=== PATIENT | male | born 1950 | race Caucasian/White ===

== ENCOUNTER 2019-12-25 17:46 | Observation (INO) | payer MEDICARE, SELFPAY ==
[2019-12-25] VITALS (22 sets, daily range): BP systolic 139–238; BP diastolic 91–113; PULSE 58–74; RESP 11–31; TEMP 36.6–37.2; O2SAT 93–99; BMI 26.5
--- NOTE | 2019-12-25 17:47 | DI.CT.S_ITS ---
PROCEDURE: CT HEAD/BRAIN WO CON INDICATIONS: confusion TECHNIQUE: Noncontrast 4.5 mm thick angled axial sections acquired from the foramen magnum to the vertex, with coronal and sagittal reformats. For radiation dose reduction, the following was used: automated exposure control, adjustment of mA and/or kV according to patient size. COMPARISON: None. FINDINGS: Image quality: Excellent. CSF spaces: Basal cisterns are patent. No extra-axial fluid collections. Ventricles are normal in size and shape. Brain: No midline shift. No intracranial masses or hemorrhage. Farfan-white matter interface is normal. Skull and face: Calvarium and visualized facial bones are intact, without suspicious lesions. Benign calcification in the frontal scalp. Sinuses: Visualized sinuses and mastoids are clear. IMPRESSION: No acute intracranial abnormality. Dictated by: Luis Enrique Priest M.D. on 12/25/2019 at 17:06 Approved by: Luis Enrique Priest M.D. on 12/25/2019 at 17:08
--- NOTE | 2019-12-25 17:50 | DI.RAD.S_ITS ---
PROCEDURE: XR CHEST 1V INDICATIONS: confusion TECHNIQUE: One view of the chest was acquired. COMPARISON: None. FINDINGS: Surgical changes and devices: None. Lungs and pleura: Lungs are clear. No pleural effusions or pneumothorax. Mediastinum: Mediastinal contours appear normal. Heart size is normal. Bones and chest wall: No suspicious bony lesions. Overlying soft tissues appear unremarkable. IMPRESSION: No acute disease. Dictated by: Alberto Almeida M.D. on 12/25/2019 at 18:54 Approved by: Alberto Almeida M.D. on 12/25/2019 at 18:56
[2019-12-25 18:00] LABS: Add Manual Diff / Slide Review NO; Basophils Absolute Auto 0 /uL (0-100); Basophils Percent Auto 0.5 % (0-2); Eosinophils Absolute Auto 0 /uL (0-450); Eosinophils Percent Auto 0.1 % (2-4); Hematocrit 46.9 % (41-53); Lymphocytes Absolute Auto 1000 /uL (1100-4500); Lymphocytes Percent Auto 10.6 % (25-40); Mean Corpuscular HGB Conc 34.1 % (30-36); Mean Corpuscular Hemoglobin 32.4 PG (26-34); Monocytes Absolute Auto 500 /uL (0-900); Neutrophils Absolute Auto 8000 /uL (1500-7000); Neutrophils Percent Auto 83.8 % (50-75); Platelet Count 226 X10^3/uL (150-400); Red Blood Cell Count 4.94 X10^6/uL (4.5-5.9); Red Cell Distribution Width 12.7 % (11.6-14.8); White Blood Cell Count 9.5 X10^3/uL (4.5-11.0)
[2019-12-25 18:07] LABS: Prothrombin Time 11.2 SECONDS (10.1-12.7)
[2019-12-25 18:09] LABS: PTT Partial Thromboplastin Tim 30 SECONDS (26.4-36.2)
--- NOTE | 2019-12-25 18:09 | ED.NEUROSD ---
HPI - Neuro Symptoms/Deficit General Chief Complaint: Neuro Symptoms/Deficit Stated Complaint: Stroke Time Seen by Provider: 12/25/19 17:47 Source: patient and EMS Mode of arrival: EMS Limitations: altered mental status History of Present Illness HPI Narrative: 69M non smoker with history of genital herpes on acyclovir presents by EMS for evaluation of stroke like symptoms. He was talking on the phone with his girlfriend at about 4pm and she noted him to be confused. She called 911 to perform a well check, they activated EMS who brought the patient in as a code stroke and he was taken directly to CT. His last known normal was sometime this morning. He has repetitive questioning but denies other symptoms. He's denied any other symptoms such as blurred vision, trouble with speech or numbness, tingling or weakness of extremities. Related Data Home Medications Medication Instructions Recorded Confirmed acyclovir 400 mg PO DAILY 12/25/19 12/25/19 diphenhydramine HCl [Benadryl] 25 mg PO BEDTIME 12/25/19 12/25/19 omeprazole magnesium [Prilosec OTC] 20 mg PO DAILY 12/25/19 12/25/19 Allergies Allergy/AdvReac Type Severity Reaction Status Date / Time No Known Drug Allergies Allergy Verified 12/25/19 19:03 Review of Systems Constitutional Constitutional: Denies chills, Denies fatigue, Denies fever(s), Denies frequent falls, Denies lethargy and Denies weakness Eyes Eyes: Denies change in vision, Denies eye discharge, Denies irritation and Denies loss of vision ENT Ears, Nose, Mouth, and Throat: Denies change in voice, Denies dizziness, Denies neck pain, Denies sore throat and Denies throat swelling Cardiovascular Cardiovascular: Denies chest pain, Denies irregular heart rhythm, Denies lightheadedness, Denies palpitations, Denies dyspnea, Denies dyspnea on exertion and Denies orthopnea Respiratory Respiratory: Denies cough, Denies dyspnea, Denies dyspnea on exertion and Denies wheezing Gastrointestinal Gastrointestinal: Denies abdominal pain, Denies change in bowel habits, Denies diarrhea, Denies nausea and Denies vomiting Musculoskeletal Musculoskeletal: Denies neck pain and Denies numbness Integumentary/Breasts Skin/Breast: Denies pruritus, Denies erythema, Denies rash and Denies wounds Neurologic Neurologic: Denies behavioral changes, Reports confusion, Denies dizziness, Denies frequent falls, Denies loss of vision, Denies numbness and Denies weakness Psychiatric Psychiatric: Denies anxiety, Denies behavioral changes, Reports confusion, Denies depression, Denies homicidal ideation and Denies suicidal ideation Endocrine Endocrine: Denies fatigue, Denies flushing and Denies palpitations Hematologic/Lymphatic Hematologic/Lymphatic: Denies easy bruising Allergic/Immunologic Allergic/Immunologic: Denies urticaria, Denies throat swelling and Denies wheezing Patient History Medical History (Updated 12/26/19 @ 02:36 by HERSON Casas) Genital herpes (Chronic) Surgical History (Updated 12/26/19 @ 02:36 by HERSON Casas) No history of previous surgery (Acute) Family History (Updated 12/26/19 @ 02:37 by HERSON Casas) Father Myocardial infarction Social History household members: none Smoking Status: Never smoker alcohol intake: current Smoking Status: Never smoker alcohol intake frequency: 0-2 drinks per day Substance Use Type: does not use Exam Narrative Exam Narrative: GENERAL: [69] year old patient appears stated age. Well-nourished, well-developed patient, in mild distress. Repetitive questioning HEAD: Atraumatic. Normocephalic. EYES: Pupils equal round and reactive. Extraocular motions intact. No scleral icterus. No injection or drainage. ENT: Nose without bleeding, purulent drainage. Throat without erythema, tonsillar hypertrophy or exudate. Airway patent. NECK: Trachea midline. Non tender CARDIOVASCULAR: Regular rate and rhythm without murmurs, gallops, or rubs. RESPIRATORY: Clear to auscultation. Breath sounds equal bilaterally. No wheezes, rales, or rhonchi. GASTROINTESTINAL: Abdomen soft, non-tender, nondistended. EXTREMITIES: No edema or joint tenderness. BACK: Nontender without deformity or crepitance. No flank tenderness. NEURO: Alert. Does not know date or place. SKIN: No rash or erythema of visible areas Initial Vital Signs Initial Vital Signs: Vital Signs Temperature 97.9 F 12/25/19 17:46 Pulse Rate 72 12/25/19 17:46 Respiratory Rate 16 12/25/19 17:46 Blood Pressure 238/109 H 12/25/19 17:46 Pulse Oximetry 95 12/25/19 17:46 Scores NIH Stroke Scale Level of Conciousness: Alert, keenly responsive Ask month/age: Answers neither question correctly, aphasic, stuporous, coma Open/close eyes, close hand: Performs both tasks correctly Best gaze horizontal: Normal Visual ernst: No visual loss Facial palsy: Normal symetrical movement Left arm drift: No drift for full 10 sec Right arm drift: No drift for full 10 sec Left leg drift: No drift for full 5 sec Right leg drift: No drift for full 5 sec Limb ataxia: Absent Sensory on face/arms/legs: Normal, no sensory loss Best language: No aphasia, normal Dysarthria: Normal Extinction or inattention: No abnormality Total NIH Stroke scale score: 2 Course Orders Ordered: Acetaminophen (Tylenol) 650 mg PO Q6HR PRN PRN Reason: Fever/Mild Pain (1-3) Acyclovir (Zovirax) 400 mg PO DAILY [facility] Aspirin (Aspirin Ec) 81 mg PO DAILY [facility] Atorvastatin Calcium (Lipitor) 40 mg PO BEDTIME [facility] Clopidogrel Bisulfate (Plavix) 75 mg PO DAILY [facility] Enoxaparin Sodium (Lovenox) 40 mg SUBCUT DAILY [facility] Ibuprofen (Advil) 600 mg PO Q6HR PRN PRN Reason: Fever/Mild Pain (1-3) Melatonin (Melatonin) 6 mg PO BEDTIME [facility] Last Admin: 12/26/19 03:01 Dose: 6 mg Documented by: LAURO Ondansetron HCl (Zofran) 4 mg IV Q8HR PRN PRN Reason: Nausea And Vomiting Pantoprazole Sodium (Protonix) 20 mg PO 0700 [facility] Discontinued Medications Aspirin (Aspirin Chew) 324 mg PO NOW ONE Stop: 12/25/19 18:21 Last Admin: 12/25/19 18:24 Dose: 324 mg Documented by: SELENE Labetalol HCl (Trandate) 10 mg IV NOW ONE Stop: 12/25/19 18:18 Last Admin: 12/25/19 18:20 Dose: 10 mg Documented by: SELENE Vital Signs Vital signs: Vital Signs - 8 hr 12/25/19 17:46 12/25/19 17:54 12/25/19 18:00 Temperature 97.9 F Pulse Rate 72 72 70 Respiratory Rate 16 25 H 25 H Blood Pressure 238/109 H 238/109 H 199/113 H Pulse Oximetry 95 93 98 MDM - Neuro Symptoms/Deficit Lab Data Result diagrams: 12/25/19 17:40 12/25/19 17:40 Labs: Lab Results 12/25/19 12/25/19 12/25/19 Range/Units 17:40 17:40 17:40 WBC 9.5 (4.5-11.0) X10^3/uL RBC 4.94 (4.5-5.9) X10^6/uL Hgb 16.0 (13.5-17.5) g/dL Hct 46.9 (41-53) % MCV 95.0 (80-100) fL MCH 32.4 (26-34) PG MCHC 34.1 (30-36) % RDW 12.7 (11.6-14.8) % Plt Count 226 (150-400) X10^3/uL Neut % (Auto) 83.8 H (50-75) % Lymph % (Auto) 10.6 L (25-40) % [place] % (Auto) 5.0 (3-14) % Eos % (Auto) 0.1 L (2-4) % Baso % (Auto) 0.5 (0-2) % Neut # (Auto) 8000 H (7534-3409) /uL Lymph # (Auto) 1000 L (2048-8091) /uL [place] # (Auto) 500 (0-900) /uL Eos # (Auto) 0 (0-450) /uL Baso # (Auto) 0 (0-100) /uL PT 11.2 (10.1-12.7) SECONDS INR 1.0 (0.9-1.3) APTT 30 (26.4-36.2) SECONDS Sodium 138 (137-145) mmol/L Potassium 3.9 (3.4-5.1) mmol/L Chloride 100 (98-107) mmol/L Carbon Dioxide 28 (22-32) mmol/L BUN 21 H (9-20) mg/dL Creatinine 0.88 (0.66-1.25) mg/dL Estimated GFR > 60.0 (>60) mL/min BUN/Creatinine Ratio 23.9 H (6-22) Glucose 100 (80-110) mg/dL Lactate (0.7-2.1) mmol/L Calcium 9.4 (8.4-10.2) mg/dL Total Bilirubin 0.6 (0.2-1.3) mg/dL AST 37 (17-59) IU/L ALT 29 (<50) IU/L Alkaline Phosphatase 83 (38-126) U/L Total Creatine Kinase 173 H (55-170) U/L CK-MB (CK-2) 2.68 H (<2.37) ng/mL CK-MB (CK-2) Rel Index 1.5 (1.5-5.0) % Troponin I < 0.012 (0.01-0.034) ng/mL Total Protein 8.6 H (6.3-8.2) g/dL Albumin 5.0 (3.5-5.0) g/dL Globulin 3.6 (1.7-4.1) g/dL Albumin/Globulin Ratio 1.4 (1.0-2.8) Procalcitonin (<0.5) ng/mL Urine RBC (0-5/HPF) Urine WBC (0-5/HPF) Urine Bacteria (None) Ur Culture Indicated? U Opiates 300ng/mL cut (Negative) Ur Oxycodone Screen (Negative) Urine Methadone Screen (Negative) Ur Barbiturates Screen (Negative) U Tricyclic Antidepress (Negative) Ur Phencyclidine Scrn (Negative) Ur Amphetamines Screen (Negative) U Methamphetamines Scrn (Negative) Ur MDMA Scrn (Ecstasy) (Negative) U Benzodiazepines Scrn (Negative) Urine Cocaine Screen (Negative) U Marijuana (THC) Screen (Negative) Ethyl Alcohol < 10 ( - 10) mg/dL COVID-19 PCR (Negative) 12/25/19 12/25/19 12/25/19 Range/Units 17:40 17:40 18:30 WBC (4.5-11.0) X10^3/uL RBC (4.5-5.9) X10^6/uL Hgb (13.5-17.5) g/dL Hct (41-53) % MCV (80-100) fL MCH (26-34) PG MCHC (30-36) % RDW (11.6-14.8) % Plt Count (150-400) X10^3/uL Neut % (Auto) (50-75) % Lymph % (Auto) (25-40) % [place] % (Auto) (3-14) % Eos % (Auto) (2-4) % Baso % (Auto) (0-2) % Neut # (Auto) (7848-5128) /uL Lymph # (Auto) (6650-8596) /uL [place] # (Auto) (0-900) /uL Eos # (Auto) (0-450) /uL Baso # (Auto) (0-100) /uL PT (10.1-12.7) SECONDS INR (0.9-1.3) APTT (26.4-36.2) SECONDS Sodium (137-145) mmol/L Potassium (3.4-5.1) mmol/L Chloride (98-107) mmol/L Carbon Dioxide (22-32) mmol/L BUN (9-20) mg/dL Creatinine (0.66-1.25) mg/dL Estimated GFR (>60) mL/min BUN/Creatinine Ratio (6-22) Glucose (80-110) mg/dL Lactate 1.7 (0.7-2.1) mmol/L Calcium (8.4-10.2) mg/dL Total Bilirubin (0.2-1.3) mg/dL AST (17-59) IU/L ALT (<50) IU/L Alkaline Phosphatase (38-126) U/L Total Creatine Kinase (55-170) U/L CK-MB (CK-2) (<2.37) ng/mL CK-MB (CK-2) Rel Index (1.5-5.0) % Troponin I (0.01-0.034) ng/mL Total Protein (6.3-8.2) g/dL Albumin (3.5-5.0) g/dL Globulin (1.7-4.1) g/dL Albumin/Globulin Ratio (1.0-2.8) Procalcitonin < 0.05 (<0.5) ng/mL Urine RBC (0-5/HPF) Urine WBC (0-5/HPF) Urine Bacteria (None) Ur Culture Indicated? U Opiates 300ng/mL cut (Negative) Ur Oxycodone Screen (Negative) Urine Methadone Screen (Negative) Ur Barbiturates Screen (Negative) U Tricyclic Antidepress (Negative) Ur Phencyclidine Scrn (Negative) Ur Amphetamines Screen (Negative) U Methamphetamines Scrn (Negative) Ur MDMA Scrn (Ecstasy) (Negative) U Benzodiazepines Scrn (Negative) Urine Cocaine Screen (Negative) U Marijuana (THC) Screen (Negative) Ethyl Alcohol ( - 10) mg/dL COVID-19 PCR Negative (Negative) 12/25/19 12/25/19 Range/Units 18:42 18:42 WBC (4.5-11.0) X10^3/uL RBC (4.5-5.9) X10^6/uL Hgb (13.5-17.5) g/dL Hct (41-53) % MCV (80-100) fL MCH (26-34) PG MCHC (30-36) % RDW (11.6-14.8) % Plt Count (150-400) X10^3/uL Neut % (Auto) (50-75) % Lymph % (Auto) (25-40) % [place] % (Auto) (3-14) % Eos % (Auto) (2-4) % Baso % (Auto) (0-2) % Neut # (Auto) (0266-4984) /uL Lymph # (Auto) (2021-2386) /uL [place] # (Auto) (0-900) /uL Eos # (Auto) (0-450) /uL Baso # (Auto) (0-100) /uL PT (10.1-12.7) SECONDS INR (0.9-1.3) APTT (26.4-36.2) SECONDS Sodium (137-145) mmol/L Potassium (3.4-5.1) mmol/L Chloride (98-107) mmol/L Carbon Dioxide (22-32) mmol/L BUN (9-20) mg/dL Creatinine (0.66-1.25) mg/dL Estimated GFR (>60) mL/min BUN/Creatinine Ratio (6-22) Glucose (80-110) mg/dL Lactate (0.7-2.1) mmol/L Calcium (8.4-10.2) mg/dL Total Bilirubin (0.2-1.3) mg/dL AST (17-59) IU/L ALT (<50) IU/L Alkaline Phosphatase (38-126) U/L Total Creatine Kinase (55-170) U/L CK-MB (CK-2) (<2.37) ng/mL CK-MB (CK-2) Rel Index (1.5-5.0) % Troponin I (0.01-0.034) ng/mL Total Protein (6.3-8.2) g/dL Albumin (3.5-5.0) g/dL Globulin (1.7-4.1) g/dL Albumin/Globulin Ratio (1.0-2.8) Procalcitonin (<0.5) ng/mL Urine RBC 0-1/hpf (0-5/HPF) Urine WBC 0-1/hpf (0-5/HPF) Urine Bacteria None seen (None) Ur Culture Indicated? Cult not indicated U Opiates 300ng/mL cut Negative (Negative) Ur Oxycodone Screen Negative (Negative) Urine Methadone Screen Negative (Negative) Ur Barbiturates Screen Negative (Negative) U Tricyclic Antidepress Negative (Negative) Ur Phencyclidine Scrn Negative (Negative) Ur Amphetamines Screen Negative (Negative) U Methamphetamines Scrn Negative (Negative) Ur MDMA Scrn (Ecstasy) Negative (Negative) U Benzodiazepines Scrn Negative (Negative) Urine Cocaine Screen Negative (Negative) U Marijuana (THC) Screen Negative (Negative) Ethyl Alcohol ( - 10) mg/dL COVID-19 PCR (Negative) Urine Dip Bedside Urine Glucose Negative Bedside Urine Bilirubin - Negative Bedside Urine Ketone + 15 Urine Specific [place] 1.030 Bedside Urine Occult Blood - Negative Bedside Urine pH 6.0 Bedside Urine Protein - Negative Bedside Urine Urobilinogen - Negative Bedside Urine Nitrite - Negative Bedside Urine Leukocytes - Negative Esterase Imaging Data CT scan - head: Radiologist's Impression: Chart Viewer Diagnostics DATE TYPE STATUS REF RANGE/AUTHOR Hx 12/25/19 17:47 Luis Enrique Priest Michael 69, M0 1950 [facility], [facility] ED R01 83.8kg Neuro Symptoms/Deficit Search Chart No Data to Display No Data to Display No Data to Display No Data to Display Today 17:46 Claude Evans M 1950 [address] [address] [address] Scan Report Signed Patient: Claude EvansMR#: [id number] : 1Acct:[id number] Age/Sex: 69 / MDate of Service: 12/25/19 Loc: ED Accession Number: [id number] Procedure: CT head/brain wo con Ordering Provider: Cheryl Stanley D.O. PROCEDURE: CT HEAD/BRAIN WO CON INDICATIONS: confusion TECHNIQUE: Noncontrast 4.5 mm thick angled axial sections acquired from the foramen magnum to the vertex, with coronal and sagittal reformats. For radiation dose reduction, the following was used: automated exposure control, adjustment of mA and/or kV according to patient size. COMPARISON: None. FINDINGS: Image quality: Excellent. CSF spaces: Basal cisterns are patent. No extra-axial fluid collections. Ventricles are normal in size and shape. Brain: No midline shift. No intracranial masses or hemorrhage. Farfan-white matter interface is normal. Skull and face: Calvarium and visualized facial bones are intact, without suspicious lesions. Benign calcification in the frontal scalp. Sinuses: Visualized sinuses and mastoids are clear. IMPRESSION: No acute intracranial abnormality. Dictated by: Luis Enrique Priest M.D. on 12/25/2019 at 17:06 Approved by: Luis Enrique Priest M.D. on 12/25/2019 at 17:08 Discharge Plan Departure Patient Disposition: Admitted as Observation Clinical Impression: TGA (transient global amnesia) Discharge Date/Time: 12/25/19 20:00 Admit Date/Time: 12/25/19 19:59 Admit Provider: Kalie Almeida
[2019-12-25 18:12] LABS: Alanine Aminotransferase 29 IU/L (<50); Albumin Globulin Ratio 1.4 (1.0-2.8); Alkaline Phosphatase 83 U/L (38-126); Aspartate Aminotransferase 37 IU/L (17-59); BUN Creatinine Ratio 23.9 (6-22); Bilirubin Total 0.6 mg/dL (0.2-1.3); Blood Urea Nitrogen 21 mg/dL (9-20); Calcium 9.4 mg/dL (8.4-10.2); Carbon Dioxide 28 mmol/L (22-32); Chloride 100 mmol/L (98-107); Creatine Kinase 173 U/L (55-170); Estimated Glomerular Filt Rate > 60.0 mL/min (>60); Ethanol (ETOH) < 10 mg/dL; Globulin 3.6 g/dL (1.7-4.1); Glucose 100 mg/dL (80-110); Lactate (Lactic Acid) 1.7 mmol/L (0.7-2.1); Potassium 3.9 mmol/L (3.4-5.1); Sodium 138 mmol/L (137-145); Total Protein 8.6 g/dL (6.3-8.2)
[2019-12-25] MEDS: LABETALOL 20 MG/4 ML SYRINGE 10 MG IV (18:20)
[2019-12-25 18:23] LABS: Troponin I < 0.012 ng/mL (0.01-0.034)
[2019-12-25] MEDS: ASPIRIN 81 MG CHEW TAB 324 MG PO (18:24)
[2019-12-25 18:26] LABS: CKMB % Relative Index 1.5 % (1.5-5.0); Creatine Kinase MB 2.68 ng/mL (<2.37); HEMOLYSIS 43 (0-50)
[2019-12-25 18:36] LABS: Procalcitonin < 0.05 ng/mL (<0.5)
[2019-12-25 18:50] LABS: COVID19 -Nasal RAPID Negative (Negative)
[2019-12-25 19:00] LABS: Bacteria Urine None Seen
[2019-12-25 19:03] LABS: UR Morphine/Opiate cutoff 300 Negative (Negative); Ur Creatinine Normal (Normal); Ur Specific Gravity Normal (Normal); Urine Amphetamines Negative (Negative); Urine Barbiturates Negative (Negative); Urine Benzodiazepines Negative (Negative); Urine Cocaine Negative (Negative); Urine MDMA Negative (Negative); Urine Methadone Negative (Negative); Urine Methamphetamines Negative (Negative); Urine Oxycodone Negative (Negative); Urine Phencyclidine Negative (Negative); Urine Tetrahydrocannabinol Negative (Negative); Urine Tricyclic Antidepressant Negative (Negative); Urine pH Normal (Normal)
[2019-12-25 19:19] LABS: Culture Indicated Urine Cult Not Indicated; RBC Urine 0-1/HPF (0-5/HPF); WBC Urine 0-1/HPF (0-5/HPF)
--- NOTE | 2019-12-25 21:21 | PC.ADMIT ---
Admission Note: The patient,Claude Evans,69 y/o, was given written information regarding hospital policies, unit procedures and contact persons. Patient's smoking status: Never smoker. Pt arrived via stretcher. Ambulated to bed. Steady on feet. Alert and conversing. Forgetful, repeats questions and comments. Oriented room and call system. Bed alarm on. door open for close monitoring. Vital Signs - 8 hr 12/25/19 17:46 12/25/19 17:54 12/25/19 18:00 Temperature 97.9 F Pulse Rate 72 72 70 Respiratory Rate 16 25 H 25 H Blood Pressure 238/109 H 238/109 H 199/113 H Pulse Oximetry 95 93 98 12/25/19 18:15 12/25/19 18:20 12/25/19 18:25 Temperature Pulse Rate 71 74 62 Respiratory Rate 22 24 20 Blood Pressure 218/107 H 209/100 H 185/98 H Pulse Oximetry 98 98 98 12/25/19 18:30 12/25/19 18:31 12/25/19 18:40 Temperature Pulse Rate 63 60 64 Respiratory Rate 31 H 21 21 Blood Pressure 183/98 H 199/102 H Pulse Oximetry 98 98 96 12/25/19 18:45 12/25/19 18:50 12/25/19 18:53 Temperature Pulse Rate 60 58 L 58 L Respiratory Rate 25 H 21 Blood Pressure 179/95 H 171/98 H 171/98 H Pulse Oximetry 98 98 12/25/19 18:55 12/25/19 19:00 12/25/19 19:05 Temperature Pulse Rate 59 L 58 L 59 L Respiratory Rate 23 17 19 Blood Pressure 153/97 H 172/96 H 160/102 H Pulse Oximetry 98 99 98 12/25/19 19:10 12/25/19 19:15 12/25/19 19:20 Temperature Pulse Rate 59 L 58 L 58 L Respiratory Rate 16 15 11 L Blood Pressure 164/96 H 155/93 H 156/94 H Pulse Oximetry 97 98 98 12/25/19 19:25 12/25/19 19:30 12/25/19 20:00 Temperature 98.9 F Pulse Rate 59 L 61 60 Respiratory Rate 11 L 22 17 Blood Pressure 140/91 H 183/101 H 152/107 H Pulse Oximetry 97 97 99
[2019-12-26] VITALS (8 sets, daily range): BP systolic 127–163; BP diastolic 80–91; PULSE 50–58; RESP 16–19; TEMP 36.4–37; O2SAT 94–99
--- NOTE | 2019-12-26 02:29 | PM.HP.1 ---
History of Present Illness History of Present Illness Date Patient Seen: 12/26/19 Time Patient Seen: 00:01 Chief complaint: Stroke Narrative: Claude Evans is a very pleasant 69-year-old male who was apparently speaking to his girlfriend in [place] on the phone when after they completed their talk she called 911 because he kept asking her the same questions over and over again. He lives on or [facility] but was on his boat and when EMS came over to do a welfare check they decided to bring him into the emergency department due to his being confused. Was unable to tell them the day of the week, where he was or his age. When he got to the emergency room he continued to repeat the same questions over and over again. He has essentially no medical history only takes acyclovir on a regular basis. He also denies a surgical history. He apparently has a home on [facility], maintains a boat over here on [address], and spends the rest of the year in [facility]. He states that he had some sort of ?fibrillation and pointed to the left side of his neck approximately 20 years ago and states that at that time. He eventually regained his memory. He does not recall if he was diagnosed with anything. He denies headaches, visual changes, hallucinations, difficulty swallowing, chest pain, shortness of breath, dysuria, diarrhea, constipation, numbing and tingling of his upper and lower extremities. Emergency department they did a CT of his head which was negative for acute stroke. His presenting blood pressure was 238/109 and he was given 1 dose of IV labetalol. His current vitals are a temperature of 98.6?, blood pressure 139/95, heart rate 64, respiratory rate of 16, oxygen saturation 99% on room air, he weighs 83.8 kg with a BMI of 26.5. Patient History Medical History (Updated 12/26/19 @ 02:36 by HERSON Casas) Genital herpes (Chronic) Surgical History (Updated 12/26/19 @ 02:36 by HERSON Casas) No history of previous surgery (Acute) Family & Social History Family History (Updated 12/26/19 @ 02:37 by HERSON Cassa) Father Myocardial infarction Social History: household members none Prior Living Arrangements House Safety & Behavioral: Feels Safe in Current Yes Environment Been Physically Hurt or No Threatened By a Person Suicidal Ideation Description None Suicide Plan Description No Plan Tobacco & Substance use: Smoking Status Never smoker alcohol intake current alcohol intake frequency 0-2 drinks per day Substance Use Type does not use Meds Home Medications and Allergies Home Medications Medication Instructions Recorded Confirmed Type acyclovir 400 mg PO DAILY 12/25/19 12/25/19 History diphenhydramine HCl [Benadryl] 25 mg PO BEDTIME 12/25/19 12/25/19 History omeprazole magnesium [Prilosec OTC] 20 mg PO DAILY 12/25/19 12/25/19 History Allergies Allergy/AdvReac Type Severity Reaction Status Date / Time No Known Drug Allergies Allergy Verified 12/25/19 19:03 Review of Systems Review of Systems ROS: Yes All systems reviewed with the patient and are negative except as otherwise documented Exam Vital Signs (past 8 hours): - 12/25/19 18:30 12/25/19 18:31 12/25/19 18:40 Temperature Pulse Rate 63 60 64 Respiratory Rate 31 H 21 21 Blood Pressure 183/98 H 199/102 H Pulse Oximetry 98 98 96 12/25/19 18:45 12/25/19 18:50 12/25/19 18:53 Temperature Pulse Rate 60 58 L 58 L Respiratory Rate 25 H 21 Blood Pressure 179/95 H 171/98 H 171/98 H Pulse Oximetry 98 98 12/25/19 18:55 12/25/19 19:00 12/25/19 19:05 Temperature Pulse Rate 59 L 58 L 59 L Respiratory Rate 23 17 19 Blood Pressure 153/97 H 172/96 H 160/102 H Pulse Oximetry 98 99 98 12/25/19 19:10 12/25/19 19:15 12/25/19 19:20 Temperature Pulse Rate 59 L 58 L 58 L Respiratory Rate 16 15 11 L Blood Pressure 164/96 H 155/93 H 156/94 H Pulse Oximetry 97 98 98 12/25/19 19:25 12/25/19 19:30 12/25/19 20:00 Temperature 98.9 F Pulse Rate 59 L 61 60 Respiratory Rate 11 L 22 17 Blood Pressure 140/91 H 183/101 H 152/107 H Pulse Oximetry 97 97 99 12/25/19 23:47 12/26/19 00:45 Temperature 98.6 F Pulse Rate 64 Respiratory Rate 16 Blood Pressure 139/95 H Pulse Oximetry 99 99 Oxygen Delivery Method Room Air Oxygen Flow Rate 0 Narrative Exam Narrative: Gen: Alert, oriented, well-developed 69 y.o. male, NAD HEENT: normocephalic, atraumatic, conjunctiva clear, sclera non-icteric, oral mucosa pink and moist Neck: supple, full ROM, no JVD, trachea is midline Resp: Lungs CTA, non-labored breathing CV: RRR, no murmur or rubs Abd: soft, non-tender, normoactive BTs Skin: no lesions or rashes, dry and intact Neuro: Alert and oriented X 2 w/no focal deficits. Speech is tangential, repetative and clear without slurring. Extremities: moves all 4 extremities, is ambulatory, negative Joycelyn?s sign Psyche: very pleasant, laughs at his inability to remember things Objective Labs Result Diagrams: 12/25/19 17:40 12/25/19 17:40 Labs: Laboratory Results - last 24 hr 12/25/19 12/25/19 12/25/19 17:40 17:40 17:40 WBC 9.5 RBC 4.94 Hgb 16.0 Hct 46.9 MCV 95.0 MCH 32.4 MCHC 34.1 RDW 12.7 Plt Count 226 Neut % (Auto) 83.8 H Lymph % (Auto) 10.6 L Griggs % (Auto) 5.0 Eos % (Auto) 0.1 L Baso % (Auto) 0.5 Neut # (Auto) 8000 H Lymph # (Auto) 1000 L Griggs # (Auto) 500 Eos # (Auto) 0 Baso # (Auto) 0 PT 11.2 INR 1.0 APTT 30 Sodium 138 Potassium 3.9 Chloride 100 Carbon Dioxide 28 BUN 21 H Creatinine 0.88 Estimated GFR > 60.0 BUN/Creatinine Ratio 23.9 H Glucose 100 Lactate Calcium 9.4 Total Bilirubin 0.6 AST 37 ALT 29 Alkaline Phosphatase 83 Total Creatine Kinase 173 H CK-MB (CK-2) 2.68 H CK-MB (CK-2) Rel Index 1.5 Troponin I < 0.012 Total Protein 8.6 H Albumin 5.0 Globulin 3.6 Albumin/Globulin Ratio 1.4 Procalcitonin Urine RBC Urine WBC Urine Bacteria Ur Culture Indicated? U Opiates 300ng/mL cut Ur Oxycodone Screen Urine Methadone Screen Ur Barbiturates Screen U Tricyclic Antidepress Ur Phencyclidine Scrn Ur Amphetamines Screen U Methamphetamines Scrn Ur MDMA Scrn (Ecstasy) U Benzodiazepines Scrn Urine Cocaine Screen U Marijuana (THC) Screen Ethyl Alcohol < 10 COVID-19 PCR 12/25/19 12/25/19 12/25/19 17:40 17:40 18:30 WBC RBC Hgb Hct MCV MCH MCHC RDW Plt Count Neut % (Auto) Lymph % (Auto) Griggs % (Auto) Eos % (Auto) Baso % (Auto) Neut # (Auto) Lymph # (Auto) Griggs # (Auto) Eos # (Auto) Baso # (Auto) PT INR APTT Sodium Potassium Chloride Carbon Dioxide BUN Creatinine Estimated GFR BUN/Creatinine Ratio Glucose Lactate 1.7 Calcium Total Bilirubin AST ALT Alkaline Phosphatase Total Creatine Kinase CK-MB (CK-2) CK-MB (CK-2) Rel Index Troponin I Total Protein Albumin Globulin Albumin/Globulin Ratio Procalcitonin < 0.05 Urine RBC Urine WBC Urine Bacteria Ur Culture Indicated? U Opiates 300ng/mL cut Ur Oxycodone Screen Urine Methadone Screen Ur Barbiturates Screen U Tricyclic Antidepress Ur Phencyclidine Scrn Ur Amphetamines Screen U Methamphetamines Scrn Ur MDMA Scrn (Ecstasy) U Benzodiazepines Scrn Urine Cocaine Screen U Marijuana (THC) Screen Ethyl Alcohol COVID-19 PCR Negative 12/25/19 12/25/19 18:42 18:42 WBC RBC Hgb Hct MCV MCH MCHC RDW Plt Count Neut % (Auto) Lymph % (Auto) Griggs % (Auto) Eos % (Auto) Baso % (Auto) Neut # (Auto) Lymph # (Auto) Griggs # (Auto) Eos # (Auto) Baso # (Auto) PT INR APTT Sodium Potassium Chloride Carbon Dioxide BUN Creatinine Estimated GFR BUN/Creatinine Ratio Glucose Lactate Calcium Total Bilirubin AST ALT Alkaline Phosphatase Total Creatine Kinase CK-MB (CK-2) CK-MB (CK-2) Rel Index Troponin I Total Protein Albumin Globulin Albumin/Globulin Ratio Procalcitonin Urine RBC 0-1/hpf Urine WBC 0-1/hpf Urine Bacteria None seen Ur Culture Indicated? Cult not indicated U Opiates 300ng/mL cut Negative Ur Oxycodone Screen Negative Urine Methadone Screen Negative Ur Barbiturates Screen Negative U Tricyclic Antidepress Negative Ur Phencyclidine Scrn Negative Ur Amphetamines Screen Negative U Methamphetamines Scrn Negative Ur MDMA Scrn (Ecstasy) Negative U Benzodiazepines Scrn Negative Urine Cocaine Screen Negative U Marijuana (THC) Screen Negative Ethyl Alcohol COVID-19 PCR Assessment & Plan Assessment & Plan narrative: Claude Evans will be admitted inpatient status for further evaluation of transient global amnesia versus CVA. Suspected TIA versus stroke presenting as global transient amnesia, acute, present on admission -Telemetry -NIH scoring and neuro checks q 4 hours -initiate clopidogrel 75 mg p.o. daily and aspirin 81 mg p.o. daily -MR stroke scheduled for 12/25 -Complete Echo for 12/25 -PT/OT/ST evaluation -Of stroke evaluation is negative, would recommend outpatient follow-up with neurology and to have an EEG to assess for seizure activity. Accelerated hypertension, acute with an admission bp of 238/109, present on admission -Allow for permissive hypertension of 220/110 HR 60 to allow for brain perfusion Risk stratification -Lipid panel, pending -Atorvastatin 40 mg po at bedtime VTE prophylaxis: Wells risk score: 0 Enoxaparin 40 mg subQ daily Consults: none Patient is admitted under inpatient status with expected length of stay greater than 2 midnights due to severity of presenting symptoms, risk of adverse event, and complexity of treatment plan. FEN: saline lock, heart healthy diet, BMP and magnesium in the am. Dispo: Presumed eventual discharge to home. Code Status: Full code as discussed with patient
[2019-12-26] MEDS: MELATONIN 3 MG TABLET 6 MG PO ×2 (03:01→21:07)
[2019-12-26 06:26] LABS: BUN Creatinine Ratio 16.5 (6-22); Blood Urea Nitrogen 14 mg/dL (9-20); Calcium 8.8 mg/dL (8.4-10.2); Carbon Dioxide 29 mmol/L (22-32); Chloride 102 mmol/L (98-107); Cholesterol 181 mg/dL (140-199); Estimated Glomerular Filt Rate > 60.0 mL/min (>60); Glucose 112 mg/dL (80-110); HDL Cholesterol 36 mg/dL (40-60); HEMOLYSIS < 15 (0-50); LDL Cholesterol Calculated 126 mg/dL (<100); Magnesium 2.2 mg/dL (1.6-2.3); Potassium 4.1 mmol/L (3.4-5.1); Sodium 137 mmol/L (137-145); Triglycerides 93 mg/dL (35-150)
[2019-12-26 06:27] LABS: Add Manual Diff / Slide Review NO; Basophils Absolute Auto 100 /uL (0-100); Basophils Percent Auto 0.9 % (0-2); Eosinophils Absolute Auto 100 /uL (0-450); Eosinophils Percent Auto 0.8 % (2-4); Hematocrit 43.6 % (41-53); Hemoglobin 14.7 g/dL (13.5-17.5); Lymphocytes Absolute Auto 1700 /uL (1100-4500); Mean Corpuscular HGB Conc 33.8 % (30-36); Mean Corpuscular Hemoglobin 32.1 PG (26-34); Mean Corpuscular Volume 94.9 fL (80-100); Monocytes Absolute Auto 800 /uL (0-900); Monocytes Percent Auto 12.3 % (3-14); Neutrophils Absolute Auto 3600 /uL (1500-7000); Platelet Count 212 X10^3/uL (150-400); Red Blood Cell Count 4.59 X10^6/uL (4.5-5.9); Red Cell Distribution Width 12.5 % (11.6-14.8); White Blood Cell Count 6.1 X10^3/uL (4.5-11.0)
--- NOTE | 2019-12-26 08:00 | DI.MRI.S_ITS ---
PROCEDURE: MR STROKE Pre- and post-contrast brain MRI, non-contrast brain MR angiogram, pre- and postcontrast neck MR angiogram INDICATIONS: Transient global amnesia TECHNIQUE: Brain: Noncontrast axial T1 spin echo, axial T2 fast spin echo, sagittal and axial FLAIR, coronal T2 fast spin echo, axial gradient echo, axial diffusion and ADC through the brain. After the administration of contrast, axial 3D VIBE of the cranial vasculature and brain. Brain MRA: Non-contrast 3-D time of flight MR angiogram, with multiple lhablfm-dnvatqajz-chpxqmxprp (MIP) reformats performed. Neck MRA: Axial and sagittal TruFISP through the neck. Coronal dynamic MR angiogram during administration of contrast in the arterial and venous phases, with 3-dimenstional hthyofu-glomvtzxi-hiyhehruyi (MIP) reformats constructed from subtraction images. COMPARISON: [facility], CT, CT HEAD/BRAIN WO CON, 12/25/2019, 17:48. FINDINGS: Image quality: Diagnostic, with note made of motion artifact. BRAIN: CSF spaces: Ventricles are normal in size and shape. Basal cisterns are patent. No extra-axial fluid collections. Brain: No intracranial bleeds or mass effects. Farfan-white matter interface is normal. Diffusion weighted images show no acute ischemic insults. Brainstem appears normal. Normal intravascular flow voids are present. No abnormal intracranial enhancement. Brain parenchymal volume loss is seen. Chronic small vessel ischemic changes are seen. Skull and face: Calvarial marrow signal is normal. Orbits appear normal. Sinuses: Sinuses and mastoids are clear. BRAIN MR ANGIOGRAM: Anterior circulation: Intracranial internal carotid arteries are normal in size and enhancement. The flow within the paired anterior cerebral arteries is normal and symmetric. The flow within the middle cerebral arteries is normal and symmetric. The anterior communicating artery is seen. No stenoses, occlusions, or aneurysms. Posterior circulation: The visualized portions of the vertebral arteries demonstrate normal caliber, and join to form a normal appearing basilar artery. The right vertebral artery is dominant to the left. The right vertebral artery is dominant to the left. The left vertebral artery largely terminates in the left posterior inferior cerebral artery. The flow within the posterior cerebral arteries is normal and symmetric. No stenoses, occlusions, or aneurysms. NECK MR ANGIOGRAM: Carotids: Great vessels demonstrate a conventional anatomy as they arise from the aortic arch. The origins of the common carotid arteries appear patent. The calibers and courses of both common carotid arteries are normal. The bifurcation regions demonstrate atherosclerotic irregularity. There is potential ulceration seen involving the left carotid bulb, as on series 32 images 42 through 46. Tortuosity is seen involving the more distal internal carotid arteries, right worse than left. Posterior circulation: The origins of the vertebral arteries appear patent. More superior portions of both vertebral arteries demonstrate normal course and caliber, and join to form a normal appearing basilar artery. Miscellaneous: Subclavian arteries appear patent. Pre-contrast images through the neck show no soft tissue abnormalities. IMPRESSION: BRAIN MRI: No findings of acute or subacute infarction can be seen. No masses or abnormal enhancement can be seen. Note is made of age-appropriate brain parenchymal volume loss and chronic small vessel ischemic changes. BRAIN MR ANGIOGRAM: No significant intracranial arterial abnormality is seen. NECK MR ANGIOGRAM: No hemodynamically significant stenosis can be seen involving the arteries of the neck. There is a potential ulceration seen involving the left carotid bulb. Please consider CT angiogram versus carotid ultrasound for further evaluation. Dictated by: Mike Guzman M.D. on 12/26/2019 at 15:03 Approved by: Mike Guzman M.D. on 12/26/2019 at 15:08
[2019-12-26] MEDS: CLOPIDOGREL 75 MG TABLET PO (09:20)
[2019-12-26] MEDS: ASPIRIN EC 81 MG TABLET PO (09:20)
[2019-12-26] MEDS: ACYCLOVIR 400 MG TABLET PO (09:20)
[2019-12-26] MEDS: ENOXAPARIN 40 MG/0.4 ML SYRINGE SUBCUT (09:20)
[2019-12-26] MEDS: PANTOPRAZOLE 20 MG TABLET PO (09:21)
--- NOTE | 2019-12-26 10:00 | DI.ECHO.S_ITS ---
[facility] +---------+ : : [address] [place] : : : : [id number] : : : : Phone: [phone] Echocardiogram Report + + :Name: ABRIL PATEL Study Date: 12/26/2019 Height: 70 in : :[facility] Weight: 184 lb : : Gender: Male BSA: 2.0 m2 : :: 1950 Age: 69 yrs BP: 163/91 mmHg: :Reason For Study: TIA : :Ordering Physician: JUDI GALLARDO : :MONITORING MANAGER Performed By: Terese Woodward : :Referring: JUDI GALLARDO : + + Interpretation Summary Normal left ventricle size with ejection fraction 60-65%. Mild mitral regurgitation. The aortic valve is mildly calcified. The ascending aorta is mildly enlarged. Procedure: A two-dimensional transthoracic echocardiogram with color flow and Doppler was performed. The study quality was technically adequate. There is no prior echocardiogram noted for this patient. The patient was in sinus bradycardia with heart rates between 50-55 bpm during the exam. Left Ventricle: The left ventricle is normal in size and wall thickness. The ejection fraction is estimated to be 60-65%. There are no focal wall motion abnormalities. Diastolic parameters suggest probable normal left ventricular diastolic function and normal filling pressures. Right Ventricle: The right ventricle is at the upper limits of normal in size. The right ventricular systolic function is normal. Atria: The left atrial size is normal. Right atrial size is normal. There is no Doppler evidence for an interatrial shunt. Mitral Valve: The mitral valve is normal in structure and function. There is mild mitral regurgitation. Aortic Valve: The aortic valve is mildly calcified. The aortic valve is trileaflet. The aortic valve opens well. There is no aortic valve stenosis. No aortic regurgitation is present. Tricuspid Valve: The tricuspid valve is normal in structure and function. There is trace tricuspid regurgitation. Pulmonary artery pressures cannot be estimated because of the lack of a measurable TR jet velocity but the IVC suggests a CVP of around 3 mmHg. Pulmonic Valve: The pulmonic valve is not well seen, but is grossly normal. There is no pulmonic valvular regurgitation. Great Vessels: The aortic root is borderline dilated. The ascending aorta is mildly enlarged. The IVC is of normal diameter and collapses greater than 50% with a sniff. This suggests a low right atrial pressure of 3 mm Hg. Pericardium/ Pleura There is no pericardial effusion. There is no pleural effusion. MMode/2D Measurements & Calculations LVIDd: 5.0 cm LVOT diam: 2.1 cm LVIDs: 3.4 cm Ao root diam: 3.5 cm FS: 33.0 % asc Aorta Diam: 3.8 cm EPSS: 0.92 cm Ao Arch Diam (Prox Trans): 2.9 cm IVSd: 1.1 cm LVPWd: 0.87 cm LV ortiz. diameter/BSA (cm/m^2): 2.5 LV sys. diameter/BSA (cm/m^2): 1.7 LA A2 area: 19.4 cm2 RA long axis: 5.8 cm LA A4 area: 18.1 cm2 RA area: 16.3 cm2 LA length (vol): 5.2 cm RA vol: 38.8 ml LA vol: 57.9 ml RA : 19.3 ml/m2 LA vol index: 28.7 ml/m2 IVC diam: 1.8 cm RVD1 (basal): 4.0 cm TAPSE: 2.0 cm Doppler Measurements & Calculations Ao V2 max: 154.5 cm/sec LVOT Max Tirso: 109.2 cm/sec Ao V2 mean: 113.0 cm/sec LV V1 max P.8 mmHg Ao max P.5 mmHg LV V1 VTI: 22.7 cm Ao mean P.5 mmHg PARAG(I,D): 2.3 cm2 Ao V2 VTI: 33.1 cm PARAG(V,D): 2.4 cm2 sev ratio: 0.69 PARAG indexed to BSA (cm^2/m^2): 1.1 MV E max tirso: 52.8 cm/sec TR max tirso: 214.2 cm/sec MV A max tirso: 50.5 cm/sec TR max P.3 mmHg MV E/A: 1.0 PA V2 max: 66.3 cm/sec Med Peak E' Tirso: 6.0 cm/sec PA V2 mean: 45.9 cm/sec E/E' med: 8.8 PA mean P.95 mmHg Lat Peak E' Tirso: 10.5 cm/sec PA pr(Accel): 8.8 mmHg E/E' lat: 5.0 E/e' average: 6.9 MV dec time: 0.35 sec SV(LVOT): 76.3 ml Electronically signed by: Anaid Brown on Reading Physician:12/26/2019 12:54 PM
--- NOTE | 2019-12-26 10:49 | OT.IP.EVAL ---
Past Medical History (Last Updated 12/26/19 @ 02:36 by HERSON Casas) Genital herpes (Chronic) Surgical History (Last Updated 12/26/19 @ 02:36 by HERSON Casas) No history of previous surgery (Acute) Occupational Therapy Inpatient Evaluation/Re-Eval M1 PT/OT-IP Prior Functional Status Start: 12/26/19 16:14 Freq: NEEDED Status: Active Protocol: Document 12/26/19 16:30 [facility] (Rec: 12/26/19 17:04 [facility] Medical Review Prior Functional Status Medical History Reviewed Yes Communication Independent. Mobility and Gait Independent with no devices. Activities of Daily Living and IADL's Completely independent with ADL's, IADl's, drives his truck, and maintains his boat. 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 Social History Household Members none Living Arrangements House M2 OT-IP Current Condition Start: 12/26/19 16:14 Freq: Status: Active Protocol: Document 12/26/19 16:30 [facility] (Rec: 12/26/19 17:04 [facility] Occupational Therapy Current Condition Current Condition Evaluation Date 12/26/19 Treatment Diagnosis Altered mental status,suspected TIA decreased short term memory Diagnosis Onset Date 12/25/19 M3 OT- IP Subjective and Pain Start: 12/26/19 16:14 Freq: Status: Active Protocol: Document 12/26/19 16:30 [facility] (Rec: 12/26/19 17:04 [facility] OT- Subjective Occupational Therapy Visit Type Type Initial Evaluation Visit Start Time 09:10 Visit Stop Time 10:49 Total Visit Minutes 109 Notes Pt also seen in the afternoon for 10 minutes. Occupational Therapy Visit Comments Patient Comments Pt agreed to do OT eval. Patient/Caregiver Goals To go home. OT Pain Assessment Pain When Pain Assessed At Rest Pain Present Pain Present Denied Pain M4 OT- IP ADL's Start: 12/26/19 16:14 Freq: Status: Active Protocol: Document 12/26/19 16:30 [facility] (Rec: 12/26/19 17:04 [facility] [id number]) OT [id number] Comments OT Self-Feeding Comments Not at meal time. OT ADL-Grooming General Evaluation Grooming Ability Independent OT ADL-Oral Care General Eval Oral Care Ability Independent OT ADL-Dressing General Eval Upper Body Dressing Ability Independent Lower Body Dressing Ability Independent OT ADL-Toileting General Evaluation Toileting Ability Independent Comments OT Toileting Comments Pt able to urinate on the toilet independently on his own. OT ADL-Bathing Comments OT Bathing Comments Pt not wanting to shower at this time. M5 OT- IP IADL's Start: 12/26/19 16:14 Freq: Status: Active Protocol: Document 12/26/19 16:30 [facility] (Rec: 12/26/19 17:04 [id number]) OT-Instrumental Activities of Daily Living Home Safety Awareness Ability to Problem Solve Emergency Able to Problem Solve Situations Medication Management Medication Management Comments Pt states does his own medications. Due to intermittent short term memory issues would benefit for pt to use pill organizer . Money Management Money Management Comments Pt states does his own. but with his intermittent short term memory issues may be best to have someone supervision initially. Driving Driving Concerns Identified Regarding Safety M6 OT- IP Functional Cognition Start: 12/26/19 16:14 Freq: Status: Active Protocol: Document 12/26/19 16:30 [facility] (Rec: 12/26/19 17:04 [id number]) Cognitive Factors Limiting Selfcare Function Cognitive Ability Level of Alertness Alert Patient Orientation Name,Age,Birthday,Month,Date, Year,Day of Week,Place, Situation Attention Span Ability Capable of Focused Attention, Capable of Sustained Attention Ability to Follow Commands Able to Follow Multi-Step Commands Memory Description Short Term Impaired Safety Awareness No Deficits Noted Problem Solving Ability Needs Assist to Identify Solutions Executive Function Ability Unable to Remember Details Cognitive Tests SLUMS Pt scored 22/30 , normal score for pt's level of education is 27/30. The score of 22 implies mild neurocognitive impairments. Pt able to recall only 1/5 words after time passed, and when able to tell pt the other words did not remember even hearing two of the words. Pt only able to recall 2/4 questions after paragraph read. ACL Pt scored 5.8/6.0 which implies pt may benefit from planning for the future. Cognitive Comments Cognitive Assessment Comments Pt scored 170 seconds on [place] making Part b however pt states his score may be affected by his vision as he states has macular degeneration with blind spots. A score of 170 seconds indicate severe impairments for visual attention, task switching, mental flexibility, speed of processing, and executive function. Base on this score, suggese pt not drive especially as pt having difficulty with his short term memory at this time. Pt not able to recall what the doctor told his right after speaking to him. Pt not able to recall that what his daughter told him over the phone. Pt mainly seems to have issues with his short term memory , which may decrease his safety for needs. Had pt do 9 Hole peg test and had him look up his percentile for each hand performed. Pt having trouble seeing and looking up initially where to look on the chart as initially looking under the female chart. Pt also needing use of a folded sheet of paper to help read across the find the correct number values. Once again his vision issues may affect his performance of reading the chart. OT- Vision and Hearing OT- Hearing Assessment OT- Hearing Assessment WFL OT- Vision Assessment Visual Acuity Glasses For Reading Visual Attentiveness WFL Occular Pursuits WFL Visual Convergence WFL Vision Assessment Comments Pt has difficulty for lower right quadrant for peripheral vision. M7 OT- IP Mobility and Balance Start: 12/26/19 16:14 Freq: Status: Active Protocol: Document 12/26/19 16:30 [facility] (Rec: 12/26/19 17:04 [facility] [id number]) OT- Bed Mobility Assessment Supine to Sit Supine to Sit Assist Independent Sit to Supine Sit to Supine Assist Independent Scooting Scooting to Edge of Bed Independent Scooting Up and Down in Bed Independent OT-Transfer Assessment Sit to and From Stand Sit to and from Stand Independent Transfers Transfer Ability Independent Technique Transfer Destination Bed,Chair,Toilet Comments Mobility Comments Pt able to independently step onto the bench seating and sit on the window still. Pt able to independently get up and down from the floor without assist. OT- Gait Assessment Gait Gait Assistance Required: Independent Comments Gait Ability Comments Pt is independent in the room. OT- Balance Assessment Sitting Balance and Reactions Static Sitting Balance Ability Normal Dynamic Sitting Balance Ability Normal Standing Balance and Reactions Static Standing Balance Ability Normal Dynamic Standing Balance Ability Normal M8 OT- IP Objective Assessments Start: 12/26/19 16:14 Freq: Status: Active Protocol: Document 12/26/19 16:30 [facility] (Rec: 12/26/19 17:04 [id number]) OT Gross Range of Motion Upper Extremity Range of Motion Assessment Within Functional Limits OT Strength Upper Extremity Strength Assessment Within Functional Limits OT- Coordination Assessment Upper Extremity Finger to Nose Test Within Functional Limits Comments Coordination Comments WFL for all coordination needs . OT-Muscle Tone Assessment Muscle Tone WNL Yes M9 OT- IP Assessment and Plan Start: 12/26/19 16:14 Freq: Status: Active Protocol: Document 12/26/19 16:30 [facility] (Rec: 12/26/19 17:04 [id number]) OT Summary Assessment and Plan Potential Rehabilitation Potential Excellent Analytic Complexity at Evaluation Low Summary OT Impairments Functional Cognition Progress Towards Goals Progressing Toward Goals Assessment Summary Pt low complexity and with main barrier of decreased short term memory , which is intermittent at times. Pt able to problem solve home safety situations and able to call [place] to try to locate his car. After some prompting, pt able to recall his girlfriend states to call his friend , Nicolas to see if he is able to assist the pt. Pt able to independently use his cell phone to make calls. Pt's memory appears to have improved during the day. However, it would be best to have someone there to provide assist as needed or at least to help supervise him. Pt states planning on getting up to his roof to fix his leaky roof. Recommend pt to go home with assist as needed especially for high level mobility needs and IADL needs. Pt physically appears to be at his baseline , mainly affected is his short term memory. Goals OT-Other Goals Pt to be able to follow through with strategies to help improve his short term memory . Days to Meet Goals 1 Frequency of Treatment Frequency Of Treatment Once a Day Treatment Plan OT Treatment Plan Functional Cognition Training, Patient/Family Education, Discharge Planning Other Treatment Recommendations and Next shower if still here Treatment Focus Discharge Recommendations OT Discharge Recommendations Home with Assistance Transportation Needs at Discharge Private Vehicle
--- NOTE | 2019-12-26 14:21 | CM.DANOTE ---
DCP/Assessment: Reviewed chart. Patient is a 69yr old male admitted to [facility] under OBS status with TIA/Stroke like symptoms. No PCP indicated. Primary payor is 1)Medicare 2)[facility]. Met with patient several different times today explained CM/SW role. Patient currently with no physical signs or deficits. Patient confirms that he is I in ADL's. 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 Patient has significant other Lexy whom is currently in [place]. Patient reports that throughout the year he only spends about 10% at home alone. Patient currently with MRI pending. Patient reports that he had incident about 20yrs ago that was similar to the one he had last night. Patient reports that he is having difficulty with his memory. OT evaluation completed and they suggest that patient does not drive upon d/c. Patient resides on [facility] and reports that he has no friends/family in the area to assist with him getting his truck home? Patient believes his truck is in the [employer] parking lot. Patient requesting in AM rounds to remain hospitalized? GR[facility]STER notified patient that he would need to have acute care needs to remain in acute care. Patient notified that this is not hospital guidelines rather they are Medicare guidelines. Patient unsure at this time if he can reach someone to assist today if he is medically stable. Patient continues to complain of memory loss but at time of last visit patient on the phone with daughter making plans travel plans which include airport location etc.. In addition, patient able to easily recall phone numbers, names, location, address. Spoke directly with Mary from OT she reports that patient would benefit from having somebody nearby if possible. Patient lives alone and reports that he is not even sure how he will get home? GRID CASTER provided patient with hotel resources and ferry schedule for [facility]. Patient made aware that there is a likely chance he will d/c this afternoon if MRI comes back negative. Patient and family (via the phone) clearly are not happy. Dr. Yoder updated. P: Anticipate home vs. hotel/motel when medically stable. MALCOLM Hammond Discharge Planning/Care Management Advanced directive, confirm from FAMILY Start: 12/25/19 21:46 Freq: Q24H Status: Active Protocol: Document 12/25/19 21:46 GMP (Rec: 12/25/19 23:05 GMP [id number]) Advance Directive, confirm on record Time 21:00 Person contacted pt Copy received No CM Discharge Assessment Start: 12/26/19 14:17 Freq: Status: Active Protocol: Document 12/26/19 14:18 KJS (Rec: 12/26/19 14:21 [facility]JS [id number]) Discharge Planning Assessment Assigned Operations Professional MALCOLM Hammond Contact Information Lexy (girlfriend) # [phone] Advance Directives? No History Provided By Patient,Medical Record Prior Living Arrangements House Household Members none Type of transporation used prior to Drives own vehicle admit Independent with ADL's Yes Is patient alert and oriented? Yes Caregiver for Another No Barriers to Discharge Yes Comment Patient currently with no physical deficits. Cogntively unclear on how much patient actually remembers? Patient appears to have improved throughout the day. MRI currently pending. Discharge Plan Home Transportation Arrangement Pending Referrals Initiated Other Additional Comment Resources for hotel/motel provided in addition ferry schedule for return to [facility]. Whiteboard Updated in Patient Room with Yes name and ext. # of Operations Professional Review Status In Process Next Review Type Continued Stay Review
--- NOTE | 2019-12-26 14:47 | PC.NURSE ---
Patient family calling a lot during this shift. Family expressing frustration that patient is being discharged today. It was explained to family that patient is having testing done and once testing is finished w/ no findings patient will be discharged. Patient NIH 0, Patient still has some forgetfulness and short term memory loss. Patient to MRI at 1445.
[2019-12-26] MEDS: ACETAMINOPHEN 325 MG TABLET 650 MG PO (15:57)
--- NOTE | 2019-12-26 17:56 | PC.NURSE ---
PATIENT HAD 13 BEAT RUN OF VTACH INFO GIVEN TO .
--- NOTE | 2019-12-26 18:08 | PM.PN.1 ---
Subjective Subjective Date Patient Seen: 12/26/19 Time Patient Seen: 18:09 Interval history: Claude Evans is a 69-year-old male who presented after an episode of transient amnesia. His symptoms have now resolved, but he was slightly confused early this morning. Urine drug screen was unremarkable, urinalysis was also unremarkable. Chemistries and CBC have also been unremarkable. However, the patient has had a couple of runs of nonsustained ventricular tachycardia on telemetry today. His echocardiogram was unremarkable. MRI testing today did not show evidence of acute infarct but did show a possible left carotid bulb ulceration. Will continue to observe him over another night to further monitor his ventricular tachycardia and will await a carotid ultrasound for further clarification as if there is ulceration as this will affect his outpatient management. Exam Vital Signs (past 8 hours): - 12/26/19 12:21 12/26/19 16:00 Temperature 97.8 F 98.4 F Pulse Rate 58 L 57 L Respiratory Rate 19 18 Blood Pressure 141/90 H 143/86 H Pulse Oximetry 97 96 Oxygen Delivery Method Room Air Oxygen Flow Rate 0 Narrative Exam Narrative: GENERAL APPEARANCE: Well developed, well nourished, in no acute distress. SKIN: Inspection of the skin reveals no rashes, ulcerations or petechiae. HEENT: Normocephalic atraumatic, extraocular muscles are intact, oropharynx is clear and mucous membranes are moist, neck is supple without adenopathy NECK: Supple and symmetric. There was no thyroid enlargement, and no tenderness, or masses were felt. CHEST: Normal AP diameter and normal contour without any kyphoscoliosis. LUNGS: Auscultation of the lungs revealed no wheezes, rhonchi, or rales. CARDIOVASCULAR: There was a regular rate and rhythm without any murmurs, gallops, rubs. Peripheral pulses were 2+ and symmetric. ABDOMEN: Soft and nontender with normal bowel sounds. No ascites was noted. MUSCULOSKELETAL: There was no tenderness or effusions noted. Muscle strength and tone were normal. EXTREMITIES: No cyanosis, clubbing or edema. NEUROLOGIC: Alert and oriented x 3. Normal affect. Gait was normal. Strength is +5/5 in the Upper Extremities and Lower Extremities Bilaterally. Sensation to touch was normal. Objective Labs Result Diagrams: 12/26/19 05:35 12/26/19 05:35 Labs: Laboratory Results - last 24 hr 12/25/19 12/25/19 12/25/19 17:40 17:40 17:40 WBC 9.5 RBC 4.94 Hgb 16.0 Hct 46.9 MCV 95.0 MCH 32.4 MCHC 34.1 RDW 12.7 Plt Count 226 Neut % (Auto) 83.8 H Lymph % (Auto) 10.6 L [place] % (Auto) 5.0 Eos % (Auto) 0.1 L Baso % (Auto) 0.5 Neut # (Auto) 8000 H Lymph # (Auto) 1000 L [place] # (Auto) 500 Eos # (Auto) 0 Baso # (Auto) 0 PT 11.2 INR 1.0 APTT 30 Sodium 138 Potassium 3.9 Chloride 100 Carbon Dioxide 28 BUN 21 H Creatinine 0.88 Estimated GFR > 60.0 BUN/Creatinine Ratio 23.9 H Glucose 100 Lactate Calcium 9.4 Magnesium Total Bilirubin 0.6 AST 37 ALT 29 Alkaline Phosphatase 83 Total Creatine Kinase 173 H CK-MB (CK-2) 2.68 H CK-MB (CK-2) Rel Index 1.5 Troponin I < 0.012 Total Protein 8.6 H Albumin 5.0 Globulin 3.6 Albumin/Globulin Ratio 1.4 Triglycerides Cholesterol LDL Cholesterol, Calc HDL Cholesterol Procalcitonin Urine RBC Urine WBC Urine Bacteria Ur Culture Indicated? U Opiates 300ng/mL cut Ur Oxycodone Screen Urine Methadone Screen Ur Barbiturates Screen U Tricyclic Antidepress Ur Phencyclidine Scrn Ur Amphetamines Screen U Methamphetamines Scrn Ur MDMA Scrn (Ecstasy) U Benzodiazepines Scrn Urine Cocaine Screen U Marijuana (THC) Screen Ethyl Alcohol < 10 COVID-19 PCR 12/25/19 12/25/19 12/25/19 17:40 17:40 18:30 WBC RBC Hgb Hct MCV MCH MCHC RDW Plt Count Neut % (Auto) Lymph % (Auto) [place] % (Auto) Eos % (Auto) Baso % (Auto) Neut # (Auto) Lymph # (Auto) [place] # (Auto) Eos # (Auto) Baso # (Auto) PT INR APTT Sodium Potassium Chloride Carbon Dioxide BUN Creatinine Estimated GFR BUN/Creatinine Ratio Glucose Lactate 1.7 Calcium Magnesium Total Bilirubin AST ALT Alkaline Phosphatase Total Creatine Kinase CK-MB (CK-2) CK-MB (CK-2) Rel Index Troponin I Total Protein Albumin Globulin Albumin/Globulin Ratio Triglycerides Cholesterol LDL Cholesterol, Calc HDL Cholesterol Procalcitonin < 0.05 Urine RBC Urine WBC Urine Bacteria Ur Culture Indicated? U Opiates 300ng/mL cut Ur Oxycodone Screen Urine Methadone Screen Ur Barbiturates Screen U Tricyclic Antidepress Ur Phencyclidine Scrn Ur Amphetamines Screen U Methamphetamines Scrn Ur MDMA Scrn (Ecstasy) U Benzodiazepines Scrn Urine Cocaine Screen U Marijuana (THC) Screen Ethyl Alcohol COVID-19 PCR Negative 12/25/19 12/25/19 12/26/19 18:42 18:42 05:35 WBC 6.1 RBC 4.59 Hgb 14.7 Hct 43.6 MCV 94.9 MCH 32.1 MCHC 33.8 RDW 12.5 Plt Count 212 Neut % (Auto) 59.0 D Lymph % (Auto) 27.0 [place] % (Auto) 12.3 Eos % (Auto) 0.8 L Baso % (Auto) 0.9 Neut # (Auto) 3600 Lymph # (Auto) 1700 [place] # (Auto) 800 Eos # (Auto) 100 Baso # (Auto) 100 PT INR APTT Sodium Potassium Chloride Carbon Dioxide BUN Creatinine Estimated GFR BUN/Creatinine Ratio Glucose Lactate Calcium Magnesium Total Bilirubin AST ALT Alkaline Phosphatase Total Creatine Kinase CK-MB (CK-2) CK-MB (CK-2) Rel Index Troponin I Total Protein Albumin Globulin Albumin/Globulin Ratio Triglycerides Cholesterol LDL Cholesterol, Calc HDL Cholesterol Procalcitonin Urine RBC 0-1/hpf Urine WBC 0-1/hpf Urine Bacteria None seen Ur Culture Indicated? Cult not indicated U Opiates 300ng/mL cut Negative Ur Oxycodone Screen Negative Urine Methadone Screen Negative Ur Barbiturates Screen Negative U Tricyclic Antidepress Negative Ur Phencyclidine Scrn Negative Ur Amphetamines Screen Negative U Methamphetamines Scrn Negative Ur MDMA Scrn (Ecstasy) Negative U Benzodiazepines Scrn Negative Urine Cocaine Screen Negative U Marijuana (THC) Screen Negative Ethyl Alcohol COVID-19 PCR 12/26/19 05:35 WBC RBC Hgb Hct MCV MCH MCHC RDW Plt Count Neut % (Auto) Lymph % (Auto) [place] % (Auto) Eos % (Auto) Baso % (Auto) Neut # (Auto) Lymph # (Auto) [place] # (Auto) Eos # (Auto) Baso # (Auto) PT INR APTT Sodium 137 Potassium 4.1 Chloride 102 Carbon Dioxide 29 BUN 14 Creatinine 0.85 Estimated GFR > 60.0 BUN/Creatinine Ratio 16.5 Glucose 112 H Lactate Calcium 8.8 Magnesium 2.2 Total Bilirubin AST ALT Alkaline Phosphatase Total Creatine Kinase CK-MB (CK-2) CK-MB (CK-2) Rel Index Troponin I Total Protein Albumin Globulin Albumin/Globulin Ratio Triglycerides 93 Cholesterol 181 LDL Cholesterol, Calc 126 H HDL Cholesterol 36 L Procalcitonin Urine RBC Urine WBC Urine Bacteria Ur Culture Indicated? U Opiates 300ng/mL cut Ur Oxycodone Screen Urine Methadone Screen Ur Barbiturates Screen U Tricyclic Antidepress Ur Phencyclidine Scrn Ur Amphetamines Screen U Methamphetamines Scrn Ur MDMA Scrn (Ecstasy) U Benzodiazepines Scrn Urine Cocaine Screen U Marijuana (THC) Screen Ethyl Alcohol COVID-19 PCR Assessment & Plan Assessment & Plan narrative: Claude Evans is a 69-year-old male admitted with likely transient global amnesia which is now improved, but requires further evaluation of possible L carotid bulb ulceration and cardiac monitoring after a few episodes of NSVT noted on telemetry. 1. Suspected global transient amnesia vs TIA, acute, present on admission, resolved -Telemetry has revealed a few episodes of nonsustained ventricular tachycardia. Patient was asymptomatic during these episodes. -NIH scoring and neuro checks q 4 hours Has been unremarkable. -initiate clopidogrel 75 mg p.o. daily x3 weeks and aspirin 81 mg p.o. daily , ABCD2 score would be 4 given duration, age and admitting blood pressure. have initiated statin therapy. -MR stroke Did not show evidence of acute infarct but did reveal possible ulceration of his left carotid bulb. Will further evaluate with a left carotid ultrasound for further evaluation as this will affect his outpatient management. -Echocardiogram was unremarkable -PT/OT/ST evaluation -Lipid panel With a total cholesterol of 181, LDL 126, HDL 36, triglycerides 93. - have started Atorvastatin 40 mg po at bedtime 2. hypertensive urgency, acute with an admission bp of 238/109, present on admission - allowed for permissive hypertension but has improved slightly without medical therapy. Will initiate a beta-ramona at low dose with metoprolol 25 mg given episodes of nonsustained ventricular tachycardia noted on telemetry 3. Possible L carotid bulb ulceration - started on asa and lipitor. Noted on MRI as described above. Will further evaluate with L carotid ultrasound. VTE prophylaxis: Wells risk score: 0 Enoxaparin 40 mg subQ daily 4. Non-sustained ventricular tachycardia - patient with two episodes noted on telemetry. Both short and asymptomatic. Echo unremarkable. Will start beta ramona therapy and treated with asa and lipitor as noted above. Consults: none Remains observation: likely discharge home tomorrow if no further cardiac events and no concerning ultrasound findings.
--- NOTE | 2019-12-26 18:34 | PC.NURSE ---
175 Pt had a 13 beat run of V-tach, strip printed and Harman RN notified
[2019-12-26] MEDS: ATORVASTATIN 20 MG TABLET 40 MG PO (21:03)
[2019-12-26] MEDS: METOPROLOL ER 25 MG TABLET PO (21:04)
[2019-12-27] VITALS (7 sets, daily range): BP systolic 113–153; BP diastolic 77–86; PULSE 46–60; RESP 13–18; TEMP 36.1–36.5; O2SAT 96–98
[2019-12-27] MEDS: PANTOPRAZOLE 20 MG TABLET PO (06:20)
--- NOTE | 2019-12-27 07:00 | DI.US.S_ITS ---
PROCEDURE: US CAROTID DOPPLER BI INDICATIONS: POSSIBLE LEFT CAROTID BULB ULCERATION ON MRI TECHNIQUE: Color and pulse Doppler interrogation was performed of both carotid systems, with image documentation and velocity measurements. COMPARISON: [facility], MR, MR STROKE, 12/26/2019, 15:03. FINDINGS: Stenosis calculations are based on SRU (Society of Radiologists in Ultrasound) criteria. Right side: Brachial blood pressure: 129/87 mm Hg. Common carotid artery peak systolic velocity: 77 cm/sec. Internal carotid artery peak systolic velocity: 57 cm/sec. Internal carotid artery end diastolic velocity: 25 cm/sec. External carotid artery peak systolic velocity: 53 cm/sec. ICA/CCA peak systolic ratio: 0.7. Farfan scale imaging description: Minimal plaque at the bifurcation Percent internal carotid artery stenosis: Less than 50%. Vertebral artery: Flow direction is antegrade. Left side: Brachial blood pressure: 130/70 mm Hg. Common carotid artery peak systolic velocity: 80 cm/sec. Internal carotid artery peak systolic velocity: 62 cm/sec. Internal carotid artery end diastolic velocity: 27 cm/sec. External carotid artery peak systolic velocity: 71 cm/sec. ICA/CCA peak systolic ratio: 0.8. Farfan scale imaging description: Minimal plaque at the bifurcation. Percent internal carotid artery stenosis: Less than 50% . Vertebral artery: Flow direction is antegrade. IMPRESSION: Less than 50% stenosis of the internal carotid arteries bilaterally. Dictated by: Ashley Guajardo M.D. on 12/27/2019 at 7:50 Approved by: Ashley Guajardo M.D. on 12/27/2019 at 7:52
[2019-12-27] MEDS: ACYCLOVIR 400 MG TABLET PO (09:02)
[2019-12-27] MEDS: ENOXAPARIN 40 MG/0.4 ML SYRINGE SUBCUT (09:02)
[2019-12-27] MEDS: CLOPIDOGREL 75 MG TABLET PO (09:02)
[2019-12-27] MEDS: ASPIRIN EC 81 MG TABLET PO (09:03)
[2019-12-27] MEDS: IBUPROFEN 600 MG TABLET PO (09:03)
[2019-12-27] MEDS: ACETAMINOPHEN 325 MG TABLET 650 MG PO (09:03)
--- NOTE | 2019-12-27 10:10 | OT.IP.TRT ---
Occupational Therapy Treatment Note M2 OT-IP Current Condition Start: 12/26/19 16:14 Freq: Status: Active Protocol: Document 12/27/19 10:10 [facility] (Rec: 12/27/19 10:55 [facility] [id number]) Occupational Therapy Current Condition Current Condition Treatment Diagnosis Global Transient Amnesia versus TIA M3 OT- IP Subjective and Pain Start: 12/26/19 16:14 Freq: Status: Active Protocol: Document 12/27/19 10:10 [facility] (Rec: 12/27/19 10:55 [facility] [id number]) OT- Subjective Occupational Therapy Visit Type Type Treatment Note Visit Start Time 09:20 Visit Stop Time 10:10 Occupational Therapy Visit Comments Patient Comments Pt agreed to redo some cognitive assessments today for OT treatment. Patient/Caregiver Goals To go home. OT Pain Assessment Pain When Pain Assessed At Rest Pain Present Pain Present Denied Pain M4 OT- IP ADL's Start: 12/26/19 16:14 Freq: Status: Active Protocol: Document 12/27/19 10:10 [facility] (Rec: 12/27/19 10:55 [facility] [id number]) OT ADL-Grooming General Evaluation Grooming Ability Independent OT ADL-Oral Care General Eval Oral Care Ability Independent OT ADL-Dressing General Eval Upper Body Dressing Ability Independent Lower Body Dressing Ability Independent OT ADL-Toileting General Evaluation Toileting Ability Independent OT ADL-Bathing Comments OT Bathing Comments Pt to take a shower later, nursing notified that pt will just mainly need set-up assist. M5 OT- IP IADL's Start: 12/26/19 16:14 Freq: Status: Active Protocol: Document 12/27/19 10:10 [facility] (Rec: 12/27/19 10:55 [facility] [id number]) OT-Instrumental Activities of Daily Living Home Safety Awareness Awareness of Need for Assistance at Home Good Awareness Ability to Problem Solve Emergency Able to Problem Solve Situations Medication Management Medication Management No Deficits Identified Money Management Money Management No Deficits Identified Meal Preparation Meal Preparation Comments Pt's daughter to come to stay with pt and assist as needed. Small Animal Veterinarian Small Animal Veterinarian Comments Pt's daughter to come to stay with pt and assist as needed. Driving Driving Comments Pt agreed to suggestion of having daughter sit with him to drive in the neighborhood, prior to trying to drive on his own. Pt states to stay in a hotel tonight with his daughter and then strip picker his car at the [employer] in the morning. After getting his car and then get on the ferry to go home to [place]. M6 OT- IP Functional Cognition Start: 12/26/19 16:14 Freq: Status: Active Protocol: Document 12/27/19 10:10 [facility] (Rec: 12/27/19 10:55 [facility] [id number]) Cognitive Factors Limiting Selfcare Function Cognitive Ability Level of Alertness Alert Patient Orientation Name,Age,Birthday,Month,Date, Year,Day of Week,Place, Situation Attention Span Ability Capable of Focused Attention, Capable of Sustained Attention Ability to Follow Commands Able to Follow Multi-Step Commands Memory Description Short Term Impaired Safety Awareness No Deficits Noted Problem Solving Ability No deficits Noted Executive Function Ability Unable to Remember Details Cognitive Tests SLUMS Re-tested pt for SLUMS and names/items changed as pt just completed test yesterday. Pt able to score 24/30 , however pt still able to recall 1/5 words and answer 3/4 question after paragraph read. Pt does admit at times gets distracted easily even prior to his current hospitalization. Pt's score still notes mild neurocognitive disorder. Cognitive Comments Cognitive Assessment Comments Re tested for [place] [employer] B and initially pt was getting flustered, trying to dumont and already making a lot of mistakes. OT stopped the assessment, educated the pt to take a deep breath, drink some water , and suggested him to take his time and think it through instead on trying to panic. Pt scored 101 seconds which is a dramatic improvement from yesterday of 170 seconds. Current score indicate moderate impairments for visual attention, task switching, mental flexibility, speed of processing, and executive function. M7 OT- IP Mobility and Balance Start: 12/26/19 16:14 Freq: Status: Active Protocol: Document 12/27/19 10:10 [facility] (Rec: 12/27/19 10:55 [facility] [id number]) OT- Bed Mobility Assessment Supine to Sit Supine to Sit Assist Independent Sit to Supine Sit to Supine Assist Independent Scooting Scooting to Edge of Bed Independent Scooting Up and Down in Bed Independent OT-Transfer Assessment Sit to and From Stand Sit to and from Stand Independent Transfers Transfer Ability Independent Technique Transfer Destination Bed,Chair Comments Mobility Comments Pt is independent with his mobility need in the room, hallway, and able to do a flight of steps without use of rails with good safety. OT- Gait Assessment Gait Gait Assistance Required: Independent Comments Gait Ability Comments Pt is independent in the room. OT- Balance Assessment Sitting Balance and Reactions Static Sitting Balance Ability Normal Dynamic Sitting Balance Ability Normal Standing Balance and Reactions Static Standing Balance Ability Normal Dynamic Standing Balance Ability Normal M8 OT- IP Objective Assessments Start: 12/26/19 16:14 Freq: Status: Active Protocol: Document 12/27/19 10:10 [facility] (Rec: 12/27/19 10:55 [facility] [id number]) OT Gross Range of Motion Upper Extremity Range of Motion Assessment Within Functional Limits OT Strength Upper Extremity Strength Assessment Within Functional Limits M9 OT- IP Assessment and Plan Start: 12/26/19 16:14 Freq: Status: Active Protocol: Document 12/27/19 10:10 [facility] (Rec: 12/27/19 10:55 [facility] [id number]) OT Summary Assessment and Plan Potential Rehabilitation Potential Excellent Analytic Complexity at Evaluation Low Summary OT Impairments Functional Cognition Progress Towards Goals Progressing Toward Goals Assessment Summary Pt doing well and independent for all ADl and functional mobility needs. Pt continues to have mild short term memory and getting distracted at times and have loss of focus. Pt admits to having a lot of stress and not drinking enough water prior to leading events as well. Pt's daughter flying in to come and stay and assist pt as needed. Goals OT-Other Goals Pt to be able to follow through with stategies to help improve his short term memory . Frequency of Treatment Frequency Of Treatment Once a Day Treatment Plan OT Treatment Plan Functional Cognition Training, Patient/Family Education, Discharge Planning Discharge Recommendations OT Discharge Recommendations Home,Home with Assistance Other Discharge Recommendations Pt coming to proved assist and supervision as needed. Transportation Needs at Discharge Private Vehicle
--- NOTE | 2019-12-27 10:28 | P.DS_ITS ---
History of Present Illness History of Present Illness Date Patient Seen: 12/27/19 Time Patient Seen: 10:28 Chief complaint: Stroke Narrative: As per HERSON Casas: Claude Evans is a very pleasant 69-year-old male who was apparently speaking to his girlfriend in [place] on the phone when after they completed their talk she called 911 because he kept asking her the same questions over and over again. [place] and when EMS came over to do a welfare check they decided to bring him into the emergency department due to his being confused. Was unable to tell them the day of the week, where he was or his age. When he got to the emergency room he continued to repeat the same questions over and over again. He has essentially no medical history only takes acyclovir on a regular basis. He also denies a surgical history. He apparently has a home on [facility], maintains a boat over here on [place], and spends the rest of the year in [facility]. He states that he had some sort of ?fibrillation and pointed to the left side of his neck approximately 20 years ago and states that at that time. He eventually regained his memory. He does not recall if he was diagnosed with anything. He denies headaches, visual changes, hallucinations, difficulty swallowing, chest pain, shortness of breath, dysuria, diarrhea, constipation, numbing and tingling of his upper and lower extremities. Emergency department they did a CT of his head which was negative for acute stroke. His presenting blood pressure was 238/109 and he was given 1 dose of IV labetalol. His current vitals are a temperature of 98.6?, blood pressure 139/95, heart rate 64, respiratory rate of 16, oxygen saturation 99% on room air, he weighs 83.8 kg with a BMI of 26.5. Discharge Providers Provider Date of admission: 12/25/19 19:59 Discharge Date: 12/27/19 Consults: 12/26/19 00:21 Consult to Occupational Therapy Evaluate & Treat Comment: Transient Global Amnesia Physician Instructions: Evaluate and treat Discharge provider: Ata Yoder DO Summary Hospital Course Discharge Diagnosis: Please see hospital course by problem list noted below. Hospital Course: Claude Evans is a 69-year-old male admitted with likely transient global amnesia which resolved. 1. Suspected global transient amnesia vs TIA, acute, present on admission, resolved -Telemetry has revealed a few episodes of nonsustained ventricular tachycardia. Patient was asymptomatic during these episodes. -NIH scoring and neuro checks q 4 hours which was unremarkable. -initiated clopidogrel 75 mg p.o. daily x3 weeks and aspirin 81 mg p.o. daily , ABCD2 score would be 4 given duration, age and admitting blood pressure. have initiated statin therapy as well. -MR stroke Did not show evidence of acute infarct but did reveal possible ulceration of his left carotid bulb. No evidence of ulceration and small plaque noted on ultrasound. -Echocardiogram was unremarkable -PT/OT/ST evaluation appreciated. -Lipid panel With a total cholesterol of 181, LDL 126, HDL 36, triglycerides 93. 2. hypertensive urgency, acute with an admission bp of 238/109, present on admission - allowed for permissive hypertension but has improved slightly without medical therapy. Initiated beta ramona but patient was bradycardic into the low 40s overnight with some dizziness. Blood pressure normalized the next day. Recommend PCP follow up. 3. Possible L carotid bulb ulceration - started on asa and lipitor. MRI as noted above and ruled out with carotid u ltrasound. 4. Non-sustained ventricular tachycardia - patient with two episodes noted on telemetry. Both short and asymptomatic. Echo unremarkable. unable to tolerate beta ramona given bradycardia on this medication. PCP follow up with continued asa, statin therapy as noted above. Consider cardiology consultation as an outpatient. 5. Possible cognitive impairment - patient scored a 22/30 with repeat 24 /30 the following day. OT noted significant attention deficits so could consider adult attention deficit or mild cognitive impairment. Patient's daughter will stay with him short term. Re commend PCP follow up for further evaluation. Dispo: discharged home. Exam Vital Signs (past 8 hours): - 12/27/19 03:22 12/27/19 08:00 Temperature 96.9 F L 97.3 F L Pulse Rate 46 L 55 L Respiratory Rate 16 18 Blood Pressure 113/77 123/86 Pulse Oximetry 97 96 Oxygen Delivery Method Room Air Oxygen Flow Rate 0 Narrative Exam Narrative: GENERAL APPEARANCE: Well developed, well nourished, in no acute distress. SKIN: Inspection of the skin reveals no rashes, ulcerations or petechiae. HEENT: Normocephalic atraumatic, extraocular muscles are intact, oropharynx is clear and mucous membranes are moist, neck is supple without adenopathy NECK: Supple and symmetric. There was no thyroid enlargement, and no tenderness, or masses were felt. CHEST: Normal AP diameter and normal contour without any kyphoscoliosis. LUNGS: Auscultation of the lungs revealed no wheezes, rhonchi, or rales. CARDIOVASCULAR: There was a regular rate and rhythm without any murmurs, gallops, rubs. Peripheral pulses were 2+ and symmetric. ABDOMEN: Soft and nontender with normal bowel sounds. No ascites was noted. MUSCULOSKELETAL: There was no tenderness or effusions noted. Muscle strength and tone were normal. EXTREMITIES: No cyanosis, clubbing or edema. NEUROLOGIC: Alert and oriented x 3. Normal affect. Gait was normal. Strength is +5/5 in the Upper Extremities and Lower Extremities Bilaterally. Sensation to touch was normal. Objective Labs Result Diagrams: 12/26/19 05:35 12/26/19 05:35 Discharge Plan Discharge Plan Patient Disposition: Home Discharge comment: You were admitted to the hospital with an episode of confusion. Possibilities include TIA or transient global amnesia. You are being treated for a possible TIA with aspirin and a statin medication. Please follow up with your PCP as soon as possible. I also recommend repeat cognitive testing outside of the hospital. Discharge orders & Medications Prescriptions: New aspirin 81 mg Tablet,Delayed Release (Dr/Ec) 81 mg PO DAILY 30 Days Qty: 30 RF: 0 atorvastatin 40 mg tablet 40 mg PO BEDTIME 30 Days Qty: 30 RF: 0 clopidogrel 75 mg tablet 75 mg PO DAILY 20 Days Qty: 20 RF: 0 Continued acyclovir 400 mg Tablet 400 mg PO DAILY RF: 0 omeprazole magnesium [Prilosec OTC] 20 mg Tablet,Delayed Release (Dr/Ec) 20 mg PO DAILY RF: 0 Discontinued diphenhydramine HCl [Benadryl] 25 mg Capsule 25 mg PO BEDTIME RF: 0 Discharge Health Status Health Concerns: TIA vs transient global amnesia vs cognitive impairment Non-sustained ventricular tachycardia Diet/Activity/Treatments Diet: Diet as Tolerated Activity: As tolerated Visit Report/Discharge Packet Visit Report Forms: Patient Portal/API, Stroke Signs & Symptoms Discharge Data Attending Provider: Kalie Almeida Admit Date/Time: 12/25/19 19:59
--- NOTE | 2019-12-27 11:21 | CM.DPC ---
DCP/continued: Reviewed chart. Spoke with Dr. Yoder in AM rounds, he reports that patient is medically stable today for discharge. AGRICULTURAL EDUCATION INSTRUCTOR met with patient to discuss d/c plan. Patient reports that his daughter is flying in from [place] this evening. Patient has concerns about staying by himself. Patient reports that his plan is to have his daughter pick him up on the way home from airport this evening. Patient believes flight arrives sometime after 8:00pm? Discussed with patient the possibility of obtaining hotel tonight to secure lodging for him and his daughter. Patient in agreement because he is unsure if they will be able to get ferry to [facility]. Patient requesting information for [facility]. AGRICULTURAL EDUCATION INSTRUCTOR provided him with name, number, and address. Per [place] at [facility] they do have available rooms for this evening. Patient will need cab to transport to [facility]. AGRICULTURAL EDUCATION INSTRUCTOR pre-arranged cab through [employer] phone# [phone]. They plan to pick patient up at 6:00pm this evening at ED entrance. Cost of ride is $7.00 patient has been notified of mo, grain picker time and location. P: D/C this evening. MALCOLM Hammond
--- NOTE | 2019-12-27 16:35 | PC.NURSE ---
PATIENT REQUESTS NOT TO HAVE A CAB PICK HIM UP AT D/C [facility]
== END 2019-12-27 18:16 | disposition home or self-care (01) ==
LOC: ED 18:39 → AC 20:00
PROVIDERS: Admitting Provider Nurse Practitioner Family; Emergency Provider Emergency Medicine; Referring Provider Emergency Medicine; Visit Provider Nurse Practitioner Family
DX: R41.82 Altered mental status, unspecified (principal); A60.00 Herpesviral infection of urogenital system, unspecified; I16.0 Hypertensive urgency; I47.2 Ventricular tachycardia; Z11.59 Encounter for screening for other viral diseases
CPT/HCPCS: 36415; 70450; 70548; 70553; 71045; 80048; 80053; 80061; 80305; 80320; 81003; 81015; 82550; 82553; 83605; 83735; 84145; 84484; 85025; 85610; 85730; 87635; 93005; 93306; 93880; 96372; 96374; 97129; 97130; 97165; 97530; 99285; 99291; G0378; A9579; J1650

== ENCOUNTER → 2020-11-14 11:50 | Outpatient (CLI) | payer MEDICARE, SELFPAY ==
[2019-12-25 20:15] VITALS: BMI 26.5
[2020-11-14 21:07] LABS: COVID19 - ORCAS (NP or Nasal) Negative (Negative)
== END ==
PROVIDERS: PCP Physician Assistant Medical; Visit Provider Physician Assistant Medical
DX: Z20.822 Contact with and (suspected) exposure to COVID-19 (principal)
CPT/HCPCS: U0003